=== PATIENT | male | born 1970 | race African-American/Black ===

== ENCOUNTER 2019-04-27 14:49 | Emergency (ER) | payer BC ==
[~2019-04-27] VITALS: Ht 182.9 cm; Wt 89.1 kg
[2019-04-27 14:51] VITALS: Ht 182.9 cm; Wt 89.1 kg
[2019-04-27 15:21] LABS: BASOPHILS 0.2 % (0-2); EOSINOPHILS 3.5 % (0-7); HEMATOCRIT 39.5 % (42.0-54.0); HEMOGLOBIN 13.2 g/dL (13.5-17.5); IMMATURE GRANULOCYTES 0.6 % (0-5); LYMPHOCYTES 29.7 % (15-50); MCH 28.4 pg (26.0-34.0); MCHC 33.4 g/dL (31.0-37.0); MCV 84.9 fL (80.0-100.0); MEAN PLATELET VOLUME 9.2 fL (7.4-10.4); MONOCYTES 4.5 % (2-11); NEUTROPHILS 61.5 % (40-80); PLATELET COUNT 293 10x3/uL (130-400); RBC 4.65 10x6/uL (4.20-6.10); RDW 12.8 % (11.5-14.5); WBC 4.9 10x3/uL (4.8-10.8)
[2019-04-27 15:29] LABS: ALBUMIN 3.7 g/dL (3.4-5.0); ALKALINE PHOSPHATASE 45 U/L (46-116); ALT (SGPT) 26 U/L (10-68); BILIRUBIN - TOTAL 0.27 mg/dL (0.2-1.3); CALC OSMOLALITY 300 mosm/kg (275-300); CALCIUM 8.5 mg/dL (8.5-10.1); CARBON DIOXIDE 27.4 mmol/L (21.0-32.0); CHLORIDE - SERUM 112 mmol/L (98-107); CREATININE - SERUM 2.1 mg/dL (0.6-1.3); GLUCOSE 133 mg/dL (74-106); PROTEIN - SERUM 6.9 g/dL (6.4-8.2); SODIUM 148 mmol/L (136-145); UREA NITROGEN 27 mg/dL (7-18); eGFR NON AFRICAN AMERICAN 36 mL/min (90-120)
[2019-04-27 15:40] LABS: CKMB 1.1 U/L (0.0-3.6); MAGNESIUM - SERUM 2.3 mg/dL (1.8-2.4)
[2019-04-27 17:43] VITALS: BP 127/73
== END 2019-04-27 17:44 | disposition home or self-care (01) ==
LOC: D.ER 14:49
PROVIDERS: Emergency Medicine
DX: R55 Syncope and collapse (principal); T67.8XXA Other effects of heat and light, initial encounter; X58.XXXA Exposure to other specified factors, initial encounter; Y93.9 Activity, unspecified; E87.0 Hyperosmolality and hypernatremia